=== PATIENT | male | born 1975 | race Caucasian/White ===

== ENCOUNTER 2022-09-16 08:26 | Emergency (ER) | payer OTHER, SELFPAY ==
[2022-09-16 08:45] VITALS: BP 132/106; PULSE 66; RESP 18; TEMP 36.7; O2SAT 98
--- NOTE | 2022-09-16 09:05 | ED.GENADULT ---
HPI - General Adult General Chief complaint: Eye Problems Stated complaint: something in left eye Time Seen by Provider: 09/16/22 08:29 Source: patient Mode of arrival: ambulatory Limitations: no limitations History of Present Illness HPI narrative: 47-year-old male coming in today complaining of a foreign body sensation in his eye. This started around lunchtime yesterday when he was driving back to work. He went home slept this morning that sensation was still there. He noticed that when the sun hit his eye really started to burn. He complains of it watering and again discontinued burning sensation. He denies any blurry vision or systemic symptoms. He also tells me that he has gotten metal in his eye before he does have a dot of metal in his eye that has been there since. Related Data Home Medications Medication Instructions Recorded Confirmed citalopram 20 mg tablet 20 mg PO DAILY 09/16/22 09/16/22 Allergies Allergy/AdvReac Type Severity Reaction Status Date / Time No Known Drug Allergies Allergy Verified 09/16/22 08:45 Review of Systems Status of ROS: Reports: 10 or more systems reviewed and unremarkable except as noted in History and below Exam Narrative: Exam Narrative: Well-nourished well-developed patient in no acute distress. Alert and oriented. Answers questions appropriately. Mood and affect are appropriate. Thoughts are goal oriented and rational. No tangential or magical thinking noted. Patient speaks in full sentences without needing to catch his breath. HEENT: Normocephalic atraumatic. Pupils are equally round reactive to light. Extraocular muscles are intact. Conjunctivae are moist without any icterus noted. He does have mild injection on the left. Harrison lamp exam with fluorescein reveals no corneal ulcerations. He does have a pinpoint foreign body right in the center of the cornea. Eyelids are inverted and the eye is rinsed out, no other foreign bodies visualized. Const: Vital Signs, click to edit/add: Vital Signs - 24 hr 09/16/22 08:45 Temperature 98.1 F Pulse Rate [Right Pulse Oximeter] 66 Respiratory Rate 18 Blood Pressure [Ri ght Upper Arm] 132/106 H Pulse Oximetry 98 Oxygen Delivery Me thod Room Air Course Course Hospital Course: We discussed the potential of that tiny foreign body causing his symptoms but again patient feels very confident this is not the issue. He feels something on the top of the eye under his eyelid bothering him. Given that I am not able to visualize anything else and we have irrigated the eye today and swept underneath the eyelids I do think that he should have a consultation with an web marketing strategist or public policy analyst given his continued symptoms. Vital Signs Vital signs: Initial Vital Signs Temperature 98.1 F 09/16/22 08:45 Temperature Source Temporal Artery Scan 09/16/22 08:45 Pulse Rate 66 09/16/22 08:45 Respiratory Rate 18 09/16/22 08:45 Blood Pressure 132/106 H 09/16/22 08:45 Blood Pressure Mean 114 09/16/22 08:45 Blood Pressure Position Sitting 09/16/22 08:45 Pulse Oximetry 98 09/16/22 08:45 Oxygen Delivery Method Room Air 09/16/22 08:45 Vital Signs Temperature 98.1 F 09/16/22 08:45 Pulse Rate 66 09/16/22 08:45 Respiratory Rate 18 09/16/22 08:45 Blood Pressure 132/106 H 09/16/22 08:45 Pulse Oximetry 98 09/16/22 08:45 Oxygen Delivery Method Room Air 09/16/22 08:45 Temperature 98.1 F 09/16/22 08:45 Pulse Rate 66 09/16/22 08:45 Respiratory Rate 18 09/16/22 08:45 Blood Pressure 132/106 H 09/16/22 08:45 Pulse Oximetry 98 09/16/22 08:45 Oxygen Delivery Method Room Air 09/16/22 08:45 Medical Decision Making MDM Narrative Medical decision making narrative: 47-year-old male foreign body sensation in the eye. Patient will be referred for an eye exam. Discharge Plan Discharge Clinical Impression: Sensation of foreign body in eye Patient Disposition: Home, Self-Care Condition: Stable Additional Instructions: Follow-up with an planning specialist. Information to make that appointment will be given to you today. Prescriptions: No Action citalopram 20 mg tablet 20 mg PO DAILY Follow Up/Referrals: Mo Boggs MD [Primary Care Provider] - Stand Alone Forms: [employer] Info Instructions
== END 2022-09-16 09:38 | disposition home or self-care (01) ==
LOC: ED 09:10
PROVIDERS: Emergency Provider Family Medicine; PCP Family Medicine
DX: T15.92XA Foreign body on external eye, part unspecified, left eye, initial encounter (principal)
CPT/HCPCS: 99283; 99284